=== PATIENT | male | born 1975 | race Caucasian/White ===

== ENCOUNTER 2017-06-29 06:47 | Day surgery (SDC) | payer MEDICARE, OTHER ==
[2017-06-24 14:37] VITALS: BMI 27.9
[~2017-06-29 06:47] MED LIST: SODIUM CHLORIDE 0.9% 1,000 ML IV SCH
[2017-06-29 07:22] VITALS: TEMP 98
[2017-06-29] MEDS ORDERED: PROPOFOL 10 MG/ML 20 ML VIAL IV ONE (07:25)
[2017-06-29] MEDS ORDERED: LIDOCAINE 1% INJ 10MG/ML (20 ML MDV) ONE (07:25)
[2017-06-29 07:35] LABS: Anion Gap 7 mmol/L; Blood Urea Nitrogen 15 mg/dL (9-20); Calcium 8.9 mg/dL (8.4-10.2); Carbon Dioxide 29 mmol/L (22-30); Chloride 108 mmol/L (98-107); Glucose 89 mg/dL (74-99); Non-African American GFR(MDRD) >60 (>60 ml/min/1.73 sqM); Potassium 3.9 mmol/L (3.5-5.1); Sodium 144 mmol/L (137-145)
[2017-06-29] MEDS: BENZOCAINE SPRAY 1 SPRAY CAN MUCOUS MEM ONE ×2 (07:35→07:40)
[2017-06-29] MEDS ORDERED: SODIUM CHLORIDE 0.9% 1,000 ML IV ONE ×2 (07:58)
--- NOTE | 2017-06-29 08:11 | P.PCN ---
Date of Procedure: 06/29/17 Preoperative Diagnosis: Atrial fibrillation Postoperative Diagnosis: Sinus rhythm Procedure(s) Performed: RAUL &cardioversion Implants: Indications for Procedure: Operative Findings: Description of Procedure: This patient was brought in for a RAUL cardioversion because of recurrent atrial fibrillation. Patient and caregivers were explained the risks and benefits of the procedure. RAUL examination: Patient was given anesthesia by department of anesthesia. The throat was sprayed with Cetacaine. A lubricated Omni probe was introduced into the oropharynx and was advanced into the esophagus. Multiple views were obtained. The patient has deviation of the cardiac silhouette and difficult with optimal pains. The aortic valve is bicuspid. There is a mobile echodense lesion noted in the aortic valve area. The significance of this is not clear. There is mild eccentric aortic regurgitation. Mitral valve appeared to be normal with mild regurgitation. Left atrial appendage is difficult to see but there doesn't seem to be any clear-cut clot. The interatrial septum appeared to be intact. Left ankle function appear to be fair. Aorta showed mild plaque. Final impression. Difficult study. Bicuspid aortic valve with eccentric mitral regurgitation. A small mobile echo dense lesion noted in the aortic valve area, the significance is not clear. No definite left atrial clot. Plan: To proceed with cardioversion. Cardioversion: Patient continued to be and anesthesia. After the RAUL., A synchronized shock of 200 J was applied. The patient converted back to sinus rhythm. No immediate complications. Final impression: Successful conversion to sinus rhythm. We'll discontinue digoxin. I'll start him on flecainide 50 mg twice daily because of recurrence of atrial fibrillation. Follow-up in the office in one week
[2017-06-29] MEDS ORDERED: SODIUM CHLORIDE 0.9% 1,000 ML IV SCH (08:15)
[2017-06-29] MEDS ORDERED: FLECAINIDE 50 MG TAB PO SCH (09:00)
[2017-06-29 09:12] VITALS: RESP 18
[2017-06-29 09:46] VITALS: BP 94/60; PULSE 66
[2017-06-29] MEDS ORDERED: FLECAINIDE 50 MG TAB PO STA (10:30)
== END 2017-06-29 10:45 | disposition home or self-care (01) ==
LOC: CATHCVL 06:47 → EEVIPCON 07:30 → CATHCVL 10:45
PROVIDERS: ATTEND Internal Medicine Cardiovascular Disease
DX: Q23.1 Congenital insufficiency of aortic valve (principal); I08.0 Rheumatic disorders of both mitral and aortic valves; I48.1 Persistent atrial fibrillation; Z79.01 Long term (current) use of anticoagulants; E78.5 Hyperlipidemia, unspecified; I42.0 Dilated cardiomyopathy; I11.0 Hypertensive heart disease with heart failure; I50.32 Chronic diastolic (congestive) heart failure; Z79.899 Other long term (current) drug therapy
CPT/HCPCS: 93312; 93320; 93005; 93325; 92960; 80048; J2001; J2704

== ENCOUNTER 2017-09-06 01:49 | Emergency (ER) | payer MEDICARE, OTHER ==
--- NOTE | 2017-09-06 02:47 | CT ---
EXAM: CT Head Without Intravenous Contrast CLINICAL HISTORY: Pain. Fall. TECHNIQUE: Axial computed tomography images of the head/brain without intravenous contrast. CTDI is 58.00 mGy and DLP is 1232.10 mGy-cm. This CT exam was performed using one or more of the following dose reduction techniques: automated exposure control, adjustment of the mA and/or kV according to patient size, and/or use of iterative reconstruction technique. COMPARISON: No relevant prior studies available. FINDINGS: Brain: No acute intracranial hemorrhage. No evidence of acute infarct. No significant white matter disease. No edema. No mass effect or midline shift. Ventricles: No significant ventriculomegaly. Bones/joints: Unremarkable. No acute fracture. Soft tissues: Unremarkable. Sinuses: Unremarkable as visualized. No acute sinusitis. Mastoid air cells: Trace scattered right mastoid fluid. Left mastoid air cells are clear. IMPRESSION: 1. No acute intracranial hemorrhage, skull fracture, or other acute intracranial abnormality. 2. Trace right mastoid fluid.
--- NOTE | 2017-09-06 02:56 | XR ---
EXAM: XR Pelvis and Right Hip, 4 Views CLINICAL HISTORY: Fall. TECHNIQUE: Frontal views of the pelvis and frontal and lateral views of the right hip. A total of 4 images were obtained. COMPARISON: No relevant prior studies available. FINDINGS: Bones/joints: No evidence of acute fracture. No evidence of hip dislocation. No widening of sacroiliac joints or pubic symphysis. Several sclerotic foci in the visualized osseous structures. Soft tissues: Unremarkable. IMPRESSION: 1. No evidence of acute fracture or hip dislocation. 2. Several sclerotic foci in the visualized osseous structures. Findings are nonspecific and may represent bone islands although osseous metastatic disease or other process cannot be excluded. Correlate clinically and consider further evaluation.
[2017-09-06] MEDS ORDERED: traMADol 50 MG TAB PO STA (03:09)
[2017-09-06] MEDS ORDERED: IBUPROFEN 400 MG TAB PO STA (03:09)
--- NOTE | 2017-09-06 03:09 | ED ---
Fall HPI - General Chief Complaint: Fall Stated Complaint: Left Hip Pain Time Seen by Provider: 09/06/17 01:54 EST Source: patient, EMS Mode of arrival: EMS Limitations: physical limitation (Developmental delay) - History of Present Illness Initial Comments: This patient is a 42-year-old man who comes in to be evaluated after [facility]. Patient reportedly had complained of left hip area pain and had a difficult time getting to walk following that. The patient does indicate the left hip/pelvis area. The patient is not able to give much history. 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 Witnessed: yes, by living facility staff Place Fall Occurred: custodial/SNF Loss of Consciousness: none Prolonged Down Time?: no Symptoms Prior to Fall: none - Related Data Home Medications Medication Instructions Recorded Confirmed Acetaminophen [Tylenol] 325 mg PO Q4-6H PRN 04/20/15 09/06/17 Desmopressin [Ddavp] 0.2 mg PO HS 04/20/15 09/06/17 Docusate [Colace] 100 mg PO BID 04/20/15 09/06/17 Metoprolol Tartrate [Lopressor] 50 mg PO BID 04/20/15 09/06/17 PARoxetine [Paxil] 20 mg PO HS 04/20/15 09/06/17 Simvastatin [Zocor] 40 mg PO HS 04/20/15 09/06/17 Tamsulosin [Flomax] 0.4 mg PO QAM 04/20/15 09/06/17 Mirabegron [Myrbetriq] 25 mg PO DAILY 06/24/17 09/06/17 Omeprazole [PriLOSEC] 10 mg PO DAILY 06/24/17 09/06/17 Rivaroxaban [Xarelto] 20 mg PO DAILY 06/24/17 09/06/17 predniSONE 5 mg PO DAILY 06/24/17 09/06/17 Previous Rx's Medication Instructions Recorded Flecainide [Tambocor] 50 mg PO Q12HR #60 tablet 06/29/17 Allergies Allergy/AdvReac Type Severity Reaction Status Date / Time No Known Allergies Allergy Verified 06/24/17 14:18 Review of Systems ROS Statement: Those systems with pertinent positive or pertinent negative responses have been documented in the HPI. ROS Other: All systems not noted in ROS Statement are negative. Limitations: ROS unobtainable due to patients medical condition Cardiovascular: Denies: chest pain Gastrointestinal: Denies: abdominal pain Musculoskeletal: Denies: back pain Neurological: Denies: headache Past Medical History Past Medical History: Atrial Fibrillation, GERD/Reflux, Hyperlipidemia, Hypertension Additional Past Medical History / Comment(s): CAREGIVER STATES "LONG URINARY HX ",States Lymph nodes are in bladder and bleed; STATES URINE LOOKS LIKE "LIGHT PINK MILKSHAKE" MILDLY DEV. DELAYED; See Kenny H&P History of Any Multi-Drug Resistant Organisms: None Reported Additional Past Surgical History / Comment(s): CARDIOVERSION, SEVERAL URINARY PROCEDURES, HAD FEEDING TUBE INFANT Past Anesthesia/Blood Transfusion Reactions: No Reported Reaction Past Psychological History: Depression Smoking Status: Never smoker Past Alcohol Use History: None Reported Past Drug Use History: None Reported - Past Family History Mother Family Medical History: Unable to Obtain Additional Family Medical History / Comment(s): LIVES IN CUSTODIAL, NO FAMILY HX AVAILABLE General Exam Limitations: physical limitation General appearance: alert, in no apparent distress Head exam: Present: atraumatic, normocephalic Eye exam: Present: normal appearance Neck exam: Present: full ROM. Absent: normal inspection, tenderness Respiratory exam: Present: normal lung sounds bilaterally. Absent: respiratory distress, wheezes, rales, rhonchi, stridor Cardiovascular Exam: Present: regular rate, normal rhythm, normal heart sounds. Absent: systolic murmur, diastolic murmur, rubs, gallop GI/Abdominal exam: Present: soft. Absent: distended, tenderness, guarding, rebound, rigid Extremities exam: Present: tenderness (Lifted), normal capillary refill. Absent : pedal edema, calf tenderness Back exam: Absent: CVA tenderness (R), CVA tenderness (L), vertebral tenderness Neurological exam: Present: alert. Absent: motor sensory deficit Skin exam: Present: warm, dry, intact, normal color. Absent: rash Course Vital Signs 09/06/17 09/06/17 09/06/17 01:50 EST 03:15 06:25 Temperature 97.7 F 98.1 F Pulse Rate 65 61 72 Respiratory 18 16 20 Rate Blood Pressure 101/54 100/68 107/62 O2 Sat by Pulse 96 97 99 Oximetry Medical Decision Making - Medical Decision Making Patient is a 42-year-old man from jail to be evaluated after fall. The patient does take Coumadin and there is concern of possible head injury so therefore head CT which does not show intracranial hemorrhage. Patient also had plain films of the hip and pelvis which did not show fracture area we did attempt to have the patient ambulate and he was not wanting to bear much weight on his leg and therefore CT of the hip was added which is negative. Patient did subsequently bear weight on the leg. Disposition Clinical Impression: Fall Disposition: HOME SELF-CARE Condition: Good Instructions: Hip Sprain (ED) Referrals: None,Stated [Primary Care Provider] - 1-2 days
--- NOTE | 2017-09-06 05:02 | CT ---
EXAM: CT Right Lower Extremity Without Intravenous Contrast, Hip CLINICAL HISTORY: Fall. TECHNIQUE: Axial computed tomography images of the right hip without intravenous contrast. Coronal and sagittal reformations provided. CTDI is 15.20 mGy and DLP is 427.10 mGy-cm. This CT exam was performed using one or more of the following dose reduction techniques: automated exposure control, adjustment of the mA and/or kV according to patient size, and/or use of iterative reconstruction technique. COMPARISON: Radiographs dated 09/06/2017. FINDINGS: Bones/joints: No evidence of acute fracture. Scattered sclerotic foci in the visualized osseous structures. No right hip dislocation. Soft tissues: Presacral density, incompletely visualized. Visualized portion of right psoas muscle appears slightly irregular. Bladder: Mild wall thickening of the visualized bladder. IMPRESSION: 1. No evidence of acute right hip fracture or dislocation. 2. Several scattered sclerotic foci in the visualized osseous structures. Findings are nonspecific and may represent bone islands although other etiologies are not entirely excluded. 3. Presacral density, incompletely visualized. Blood products, edema or other process not excluded. Additional imaging can be obtained to further evaluate as clinically warranted. 4. Mild wall thickening of the visualized bladder. Correlate with urinalysis.
[2017-09-06 06:25] VITALS: BP 107/62; PULSE 72; RESP 20; TEMP 98.1
--- NOTE | 2017-09-12 01:52 | CDI ---
Dear Mitchell Lazo MD: Please do addendum History of Present Illness, Physical Examination, and Medical Decision Making. Thank you, Yovani Hurley, School Counselor. If you have any questions, please contact Machinist Mate at [phone]. JEANCARLOSD
== END 2017-09-06 08:58 | disposition home or self-care (01) ==
LOC: EC 01:49
DX: M25.552 Pain in left hip (principal); E78.5 Hyperlipidemia, unspecified; I10 Essential (primary) hypertension; I48.91 Unspecified atrial fibrillation; K21.9 Gastro-esophageal reflux disease without esophagitis; F32.9 Major depressive disorder, single episode, unspecified; Z79.01 Long term (current) use of anticoagulants; Z79.52 Long term (current) use of systemic steroids; Z79.899 Other long term (current) drug therapy; Z87.448 Personal history of other diseases of urinary system; W18.39XA Other fall on same level, initial encounter; Y92.121 Bathroom in nursing home as the place of occurrence of the external cause
CPT/HCPCS: 70450; 73502; 99284